=== PATIENT | male | born 1965 | race Caucasian/White ===

== ENCOUNTER 2019-05-22 15:17 | Emergency (ER) | payer OTHER ==
[~2019-05-22] VITALS: Ht 188 cm; Wt 95.3 kg
[2019-05-22 15:33] LABS: URINE BILIRUBIN NEGATIVE (Negative); URINE BLOOD NEGATIVE (Negative); URINE CLARITY CLEAR; URINE COLOR YELLOW; URINE GLUCOSE-RANDOM NEGATIVE (Negative); URINE KETONES TRACE (Negative); URINE LEUKOCYTES-REFLEX NEGATIVE (Negative); URINE NITRITE-REFLEX NEGATIVE (Negative); URINE PROTEIN NEGATIVE (Negative)
[2019-05-22 15:50] LABS: ABSOLUTE BASOPHILS 0.1 thou/uL (0.0-0.2); ABSOLUTE LYMPHOCYTES 1.1 thou/uL (0.8-5.3); ABSOLUTE MONOCYTES 0.4 thou/uL (0.0-1.2); ABSOLUTE NEUTROPHILS 7.4 thou/uL (1.6-8.1); BASOPHILS 0.9 %; EOSINOPHILS 0.2 %; HEMATOCRIT 54.4 % (42.0-52.0); HEMOGLOBIN 18.6 gm/dL (14.0-18.0); LYMPHOCYTES 12.2 %; MCH 31.8 pg (26.0-34.0); MCHC 34.3 g/dL (28.0-37.0); MCV 92.9 fL (80.0-100.0); MONOCYTES 4.8 %; MPV 7.9 fl. (7.2-11.1); NUCLEATED RBCS 0 /100WBC; PLATELET COUNT* 259 thou/uL (150-400); POLYS 81.9 %; RBC 5.86 mil/uL (4.50-6.00); RDW-CV 13.4 % (10.5-14.5)
[2019-05-22 16:05] LABS: CALCIUM 8.6 mg/dL (8.5-10.1); CREATININE 1.2 mg/dL (0.6-1.3); POTASSIUM 4.3 mmol/L (3.5-5.1)
[2019-05-22 16:10] LABS: TOTAL BILIRUBIN 0.7 mg/dL (<0.1-1.0); TOTAL PROTEIN 7.4 g/dL (6.4-8.2)
[2019-05-22 16:43] VITALS: BP 114/74
== END 2019-05-22 16:43 | disposition home or self-care (01) ==
LOC: M.ERS 15:17
PROVIDERS: Physician Assistant
DX: R31.9 Hematuria, unspecified (principal)